=== PATIENT | male | born 1995 | race American Indian/Alaskan Native ===

== ENCOUNTER 2016-10-21 15:26 | Emergency (ER) | payer SELFPAY ==
[2016-10-21 16:17] VITALS: BP 129/56
[2016-10-21] MEDS ORDERED: ULTRAM PO ONE (17:22)
--- NOTE | 2016-10-21 18:19 | XRay Report ---
FINAL REPORT PROCEDURE: XR ANKLE 3 LT TECHNIQUE: Left ankle, two views HISTORY: pain post injury COMPARISON: No prior studies are available for comparison. FINDINGS: No acute fracture or dislocation is seen. Ankle mortise and talar dome are intact. IMPRESSION: No acute fracture or dislocation is seen
--- NOTE | 2016-10-21 19:31 | Emergency Department Report ---
Entered by LAMINE MORALES, acting as scribe for WOLF CARLSON PA. ED Lower Extremity HPI - General Chief Complaint: Extremity Injury, Lower Stated Complaint: LT ANKLE PAIN Time Seen by Provider: 10/21/16 16:24 Source: patient Mode of arrival: Ambulatory Limitations: No Limitations - History of Present Illness Initial Comments: 21 year old male with no significant PMHx presents to the ED c/o left ankle pain that began last night. Patient states he jumped a fence at work, fell on a log, and subsequently twisted his left ankle inward. Rates pain a 6/10 in severity. He describes pain as throbbing in quality with walking and movement. Denies pain at rest. Associated symptoms includes left ankle swelling, but he denies numbness, tingling, fever, and chills. Notes soaking left ankle in warm water with no relief. Allergic to hydrocodone and Ibuprofen. -: Last night Injury: Ankle: Left Type of Injury: inversion Place: work Severity: moderate Severity scale (0 -10): 6 Improves With: immobilization Worsens With: weight bearing, movement Context: fall (jumped a fence and twisted ankle after landing on a log) Associated Symptoms: able to partially bear weight, ambulatory. denies: snap/ pop sensation, swelling, numbness, tingling, other (headache) - Related Data Previous Rx's Medication Instructions Recorded Last Taken Type Cephalexin [Keflex] 500 mg PO Q6HR #40 capsule 10/31/13 Unknown Rx Ibuprofen [Motrin] 600 mg PO Q8H PRN #50 tablet 10/31/13 Unknown Rx traMADol [Ultram 50 MG tab] 50 mg PO Q6HR PRN #16 tablet 10/21/16 Unknown Rx Allergies Allergy/AdvReac Type Severity Reaction Status Date / Time hydrocodone Allergy Hives Verified 10/21/16 16:11 ibuprofen Allergy Unknown Verified 10/21/16 16:11 ED Review of Systems Comment: All other systems reviewed and negative Constitutional: denies: chills, fever, other (tingling) Gastrointestinal: denies: nausea, vomiting Musculoskeletal: joint swelling (left ankle), other (left ankle pain) Skin: denies: rash Neurological: denies: headache, numbness ED Past Medical Hx - Past Medical History Previous Medical History?: No - Surgical History Past Surgical History?: No - Social History Smoking Status: Never Smoker Substance Use Type: None - Medications Home Medications: Home Medications Medication Instructions Recorded Confirmed Last Taken Type Cephalexin [Keflex] 500 mg PO Q6HR #40 capsule 10/31/13 Unknown Rx Ibuprofen [Motrin] 600 mg PO Q8H PRN #50 tablet 10/31/13 Unknown Rx traMADol [Ultram 50 MG tab] 50 mg PO Q6HR PRN #16 tablet 10/21/16 Unknown Rx ED Physical Exam - General Limitations: No Limitations General appearance: alert, in no apparent distress - Head Head exam: Present: atraumatic, normocephalic - Eye Eye exam: Present: normal appearance, EOMI Pupils: Present: normal accommodation - ENT ENT exam: Present: normal exam, mucous membranes moist - Neck Neck exam: Present: normal inspection, full ROM - Respiratory Respiratory exam: Present: normal lung sounds bilaterally. Absent: respiratory distress, wheezes, rales, rhonchi - Cardiovascular Cardiovascular Exam: Present: regular rate, normal rhythm. Absent: systolic murmur, diastolic murmur, rubs, gallop - GI/Abdominal GI/Abdominal exam: Present: soft. Absent: distended - Extremities Exam Extremities exam: Present: normal inspection, full ROM (limited dorsiflexion and plantar flexion motion due to left ankle), tenderness (left anterior ankle) - Expanded Lower Extremity Exam Left Hip exam: Present: normal inspection, full ROM Upper Leg exam: Present: normal inspection, full ROM Knee exam: Present: normal inspection, full ROM Lower Leg exam: Present: normal inspection, full ROM. Absent: tenderness Ankle exam: Present: normal inspection, full ROM (limited dorsiflexion and plantar flexion motion due to left ankle pain), tenderness (anterior aspect tenderness to palpation). Absent: swelling, abrasion, laceration, ecchymosis, deformity, dislocation Foot/Toe exam: Present: normal inspection, full ROM. Absent: tenderness Neuro vascular tendon exam: Present: no vascular compromise. Absent: pulse deficit, abnormal cap refill, motor deficit, sensory deficit, tendon deficit, pallor Gait: Positive: observed and normal - Back Exam Back exam: Present: normal inspection, full ROM - Neurological Exam Neurological exam: Present: alert, oriented X3 - Psychiatric Psychiatric exam: Present: normal affect, normal mood - Skin Skin exam: Present: warm, dry, intact. Absent: rash, erythema (left ankle), ecchymosis (left ankle), other (left ankle edema) ED Course Vital Signs 10/21/16 10/21/16 10/21/16 16:12 17:34 17:35 Temperature 98.3 F Pulse Rate 72 84 Respiratory 18 18 18 Rate Blood Pressure 129/56 O2 Sat by Pulse 100 99 Oximetry ED Lower Extremity MDM - Lab Data Vital Signs 10/21/16 10/21/16 10/21/16 16:12 17:34 17:35 Temperature 98.3 F Pulse Rate 72 84 Respiratory 18 18 18 Rate Blood Pressure 129/56 O2 Sat by Pulse 100 99 Oximetry - Radiology Data Radiology results: report reviewed PROCEDURE: XR ANKLE 3 LT TECHNIQUE: Left ankle, two views HISTORY: pain post injury COMPARISON: No prior studies are available for comparison. FINDINGS: No acute fracture or dislocation is seen. Ankle mortise and talar dome are intact. IMPRESSION: No acute fracture or dislocation is seen - Medical Decision Making 21-year-old male presents today with left ankle pain post twisting injury. His x-rays also reveal no fracture or dislocation. Patient is in no acute distress at this time. He will be discharged home and is encouraged to follow up with a primary care provider. He will be sent home on tramadol and is encouraged to return to the emergency room for any worsening symptoms. ED Disposition Clinical Impression: Ankle pain Qualifiers: Laterality: left Chronicity: acute Qualified Code(s): M25.572 - Pain in left ankle and joints of left foot Disposition: DISCHARGED TO HOME OR SELFCARE Is pt being admited?: No Does the pt Need Aspirin: No Condition: Stable Instructions: Ankle Sprain (ED), Ankle Exercises (GEN) Additional Instructions: Follow-up with primary care provider. Return to the emergency department if symptoms worsen. Prescriptions: traMADol [Ultram 50 MG tab] 50 mg PO Q6HR PRN #16 tablet PRN Reason: Pain Referrals: PRIMARY CARE, [Primary Care Provider] - 3-5 Days DESI ROSALES MD [Staff Physician] - 3-5 Days Forms: Work/School Release Form(ED) Time of Disposition: 19:26 This documentation as recorded by the ANDREW cortez JASMINE,accurately reflects the service I personally performed and the decisions made by ROBYN keith NATASHA, PA.
== END 2016-10-21 19:44 | disposition home or self-care (01) ==
LOC: ED 15:26
DX: M25.572 Pain in left ankle and joints of left foot (principal)
CPT/HCPCS: 99283

== ENCOUNTER 2017-01-13 08:35 | Emergency (ER) | payer SELFPAY ==
--- NOTE | 2017-01-13 11:15 | Emergency Department Report ---
ED Male HPI - General Chief complaint: Urogenital-Male Stated complaint: POSS STD Time Seen by Provider: 01/13/17 10:46 Source: patient Mode of arrival: Ambulatory Limitations: No Limitations - Related Data Previous Rx's Medication Instructions Recorded Last Taken Type Cephalexin [Keflex] 500 mg PO Q6HR #40 capsule 10/31/13 Unknown Rx Ibuprofen [Motrin] 600 mg PO Q8H PRN #50 tablet 10/31/13 Unknown Rx traMADol [Ultram 50 MG tab] 50 mg PO Q6HR PRN #16 tablet 10/21/16 Unknown Rx Allergies Allergy/AdvReac Type Severity Reaction Status Date / Time hydrocodone Allergy Hives Verified 10/21/16 16:11 ibuprofen Allergy Unknown Verified 10/21/16 16:11 ED Review of Systems ROS: Stated complaint: POSS STD Other details as noted in HPI ED Past Medical Hx - Past Medical History Previous Medical History?: No - Surgical History Past Surgical History?: No - Social History Smoking Status: Never Smoker Substance Use Type: None - Medications Home Medications: Home Medications Medication Instructions Recorded Confirmed Last Taken Type Cephalexin [Keflex] 500 mg PO Q6HR #40 capsule 10/31/13 Unknown Rx Ibuprofen [Motrin] 600 mg PO Q8H PRN #50 tablet 10/31/13 Unknown Rx traMADol [Ultram 50 MG tab] 50 mg PO Q6HR PRN #16 tablet 10/21/16 Unknown Rx ED Physical Exam - General Limitations: No Limitations ED Course Vital Signs 01/13/17 08:52 Temperature 9837 F H Pulse Rate 88 Respiratory 20 Rate Blood Pressure 125/88 O2 Sat by Pulse 100 Oximetry Critical care attestation.: If time is entered above; I have spent that time in minutes in the direct care of this critically ill patient, excluding procedure time. ED Disposition Condition: Stable Referrals: PRIMARY CARE, [Primary Care Provider] - 3-5 Days
[2017-01-13 11:55] LABS: Bilirubin,Urine NEG (Negative); Blood,Urine NEG (Negative); Ketones,Urine NEG (Negative); Leukocyte Esterase,Urine NEG (Negative); Nitrite,Urine NEG (Negative); Protein,Urine <15 mg/dL mg/dL (Negative)
[2017-01-13] MEDS ORDERED: ROCEPHIN IM ONE (14:27)
[2017-01-13] MEDS ORDERED: XYLOCAINE 1% MPF 5 mL INFILTRATI ONE (14:27)
[2017-01-13] MEDS ORDERED: ZITHROMAX PO ONE (14:28)
[2017-01-13 15:00] VITALS: BP 126/80
--- NOTE | 2017-01-13 15:12 | Emergency Department Report ---
Entered by ERIC GIBSON, acting as scribe for YAA SULTANA NP. ED Male HPI - General Chief complaint: Urogenital-Male Stated complaint: POSS STD Time Seen by Provider: 01/13/17 10:46 Source: patient Mode of arrival: Ambulatory Limitations: No Limitations - History of Present Illness Initial comments: 21 year old male with no significant PMHx presents to ED with c/o erythema and itching to penile for 2 days. Patient states he had protected sex with his partner and denies hx of STD or HIV exposure. Patient states he is sexually active with one partner, and states his partner denies Hx STD exposure. Patient reports sores and describes pain as itchy, but denies dysuria, penile discharge , bleeding from penile, CP, SOB, numbness, or tingling. Patient notes he do encounter oral sex with his partner. Denies EtOH or drug usage. -: days(s) (2) Location: penis Radiation: none Severity: moderate Severity scale (0 -10): 4 Quality: burning Consistency: constant Improves with: none Worsens with: palpation denies other symptoms. denies: discharge, swelling, rash, urinary retention, blood in urine, dysuria, fever, nausea/vomiting, incontinence - Related Data Sexually active: Yes (1 partner ) Previous Rx's Medication Instructions Recorded Last Taken Type Cephalexin [Keflex] 500 mg PO Q6HR #40 capsule 10/31/13 Unknown Rx Ibuprofen [Motrin] 600 mg PO Q8H PRN #50 tablet 10/31/13 Unknown Rx traMADol [Ultram 50 MG tab] 50 mg PO Q6HR PRN #16 tablet 10/21/16 Unknown Rx Allergies Allergy/AdvReac Type Severity Reaction Status Date / Time hydrocodone Allergy Hives Verified 10/21/16 16:11 ibuprofen Allergy Unknown Verified 10/21/16 16:11 ED Review of Systems Comment: All other systems reviewed and negative Constitutional: see HPI. denies: chills, fever Eyes: as per HPI. denies: eye pain ENT: as per HPI. denies: ear pain, throat pain Respiratory: no symptoms reported, see HPI. denies: cough, shortness of breath , wheezing Cardiovascular: as per HPI. denies: chest pain, palpitations, dyspnea on exertion, orthopnea Endocrine: no symptoms reported, see HPI. denies: excessive sweating, flushing , intolerance to cold, intolerance to heat Gastrointestinal: as per HPI. denies: abdominal pain, nausea, diarrhea Genitourinary: as per HPI. denies: urgency, dysuria, frequency, discharge Musculoskeletal: as per HPI. denies: back pain, joint swelling, arthralgia Skin: as per HPI, other (sores to penile). denies: rash Neurological: as per HPI. denies: headache, weakness, numbness, paresthesias Psychiatric: as per HPI. denies: anxiety, depression Hematological/Lymphatic: as per HPI. denies: easy bleeding ED Past Medical Hx - Past Medical History Previous Medical History?: No - Surgical History Past Surgical History?: No - Family History Family history: no significant - Social History Smoking Status: Never Smoker Substance Use Type: None - Medications Home Medications: Home Medications Medication Instructions Recorded Confirmed Last Taken Type Cephalexin [Keflex] 500 mg PO Q6HR #40 capsule 10/31/13 Unknown Rx Ibuprofen [Motrin] 600 mg PO Q8H PRN #50 tablet 10/31/13 Unknown Rx traMADol [Ultram 50 MG tab] 50 mg PO Q6HR PRN #16 tablet 10/21/16 Unknown Rx ED Physical Exam - General Limitations: No Limitations General appearance: alert, in no apparent distress - Head Head exam: Present: atraumatic, normocephalic - Eye Eye exam: Present: normal appearance, PERRL - ENT ENT exam: Present: normal exam, mucous membranes moist - Neck Neck exam: Present: normal inspection, full ROM. Absent: tenderness, meningismus, lymphadenopathy - Respiratory Respiratory exam: Present: normal lung sounds bilaterally. Absent: respiratory distress, wheezes, rales, rhonchi, stridor - Cardiovascular Cardiovascular Exam: Present: regular rate, normal rhythm. Absent: systolic murmur, diastolic murmur, rubs, gallop - GI/Abdominal GI/Abdominal exam: Present: soft, normal bowel sounds. Absent: distended, tenderness, guarding, rebound, rigid, diminished bowel sounds - exam: Present: other (erythema to top of penis. he has lesions concerning for herpes. painful. yellow brent around top of penis on top of foreskin. no lesions under foreskin. no drainage. no discharge. ). Absent: normal inspection , testicular tenderness, urethral discharge, scrotal swelling - Extremities Exam Extremities exam: Present: normal inspection, full ROM, normal capillary refill. Absent: tenderness, pedal edema, joint swelling - Back Exam Back exam: Present: normal inspection, full ROM. Absent: tenderness - Neurological Exam Neurological exam: Present: alert, oriented X3 - Psychiatric Psychiatric exam: Present: normal affect, normal mood - Skin Skin exam: Present: warm, dry, intact, normal color, erythema (to penile ) ED Course Vital Signs 01/13/17 01/13/17 08:52 14:59 Temperature 9837 F H 98.1 F Pulse Rate 88 48 L Respiratory 20 16 Rate Blood Pressure 125/88 Blood Pressure 126/80 [Left] O2 Sat by Pulse 100 100 Oximetry - Reevaluation(s) Reevaluation #1: 01/13/17 to er w lesions around tip of penis sex w 1 female during last 2 m, condoms used no dc gf does not co same s/s no hx sti no testicular pain lesions started as a burn and itch, concerning for herpetic lesion johan given his ro condoms ua noted temp 98 Reevaluation #2: 01/13/17 13:40 discussed w lab hsv 1/2 G/M are send out- blood and swab sent this would be new dx for pt call w results. [phone] -- cell phone given pts concern level he was empiracally tx with rocephin IM and azithrom 1 GM PO educated on safe sex ED Medical Decision Making - Medical Decision Making ua noted gc herpes suspected- lab sent, send out - Differential Diagnosis ro herpetic lesion ED Disposition Clinical Impression: STI (sexually transmitted infection), Lesion of penis Disposition: DC-01 TO HOME OR SELFCARE Is pt being admited?: No Does the pt Need Aspirin: No Condition: Stable Instructions: Sexually Transmitted Diseases (ED), Safe Sex (ED) Additional Instructions: safe sex we will call you when the swab results come back Referrals: PRIMARY CARE,MD [Primary Care Provider] - 3-5 Days Time of Disposition: 14:29 This documentation as recorded by the PAIGE cortez PEARL,accurately reflects the service I personally performed and the decisions made by me,YAA SULTANA NP.
== END 2017-01-13 14:59 | disposition home or self-care (01) ==
LOC: ED 08:35
DX: N50.9 Disorder of male genital organs, unspecified (principal); Z88.6 Allergy status to analgesic agent
CPT/HCPCS: 81001; 87529; 87591; 96372; 99283; J0696

== ENCOUNTER 2017-07-01 00:03 | Emergency (ER) | payer SELFPAY ==
[2017-07-01 05:06] LABS: Amorphous Crystals,Urine 3+; Bilirubin,Urine NEG (Negative); Blood,Urine NEG (Negative); Calcium Oxalate Crystals,Urine 3+; Color,Urine Yellow (Yellow); Nitrite,Urine NEG (Negative)
[2017-07-01 05:08] LABS: WBC,Urine > 182.0 /HPF (0.0-6.0)
[2017-07-01] MEDS ORDERED: ROCEPHIN IM ONE (05:10)
[2017-07-01] MEDS ORDERED: XYLOCAINE 1% MPF 5 mL INFILTRATI ONE (05:10)
--- NOTE | 2017-07-01 05:15 | Emergency Department Report ---
ED Male HPI - General Chief complaint: Urogenital-Male Stated complaint: BODYACHE Time Seen by Provider: 07/01/17 03:55 Source: patient Mode of arrival: Ambulatory Limitations: No Limitations - History of Present Illness Initial comments: This is a 21-year-old male nontoxic, well nourished in appearance, no acute signs of distress presents to the ED with c/o of dysuria x6 days. Patient denies any penile discharge. Patient stated he believes he received from a dirty toilet. Patient denies any sexual activity. Denies any exposure or concerns of STD. Patient denies any back pain, chest pain, shortness of breath , fever, chills, nausea, vomiting, headache or stiff neck. Patient denies any polyuria or hematuria. Patient denies any back pain, testiuclar pain, or testiulcar swelling. Denies penila lesions or ulcers. Patient states allergies to hydrocodone and ibuprofen. Denies past medical history. MD Complaint: dysuria -: days(s) (6) Radiation: none Severity: mild Severity scale (0 -10): 8 Quality: burning Consistency: constant Improves with: none Worsens with: urination denies other symptoms. denies: discharge, swelling, mass, rash, urinary retention, blood in urine, dysuria, fever, nausea/vomiting, incontinence - Related Data Previous Rx's Medication Instructions Recorded Last Taken Type Cephalexin [Keflex] 500 mg PO Q6HR #40 capsule 10/31/13 Unknown Rx Ibuprofen [Motrin] 600 mg PO Q8H PRN #50 tablet 10/31/13 Unknown Rx traMADol [Ultram 50 MG tab] 50 mg PO Q6HR PRN #16 tablet 10/21/16 Unknown Rx Sulfamethoxazole/Trimethoprim 1 each PO BID #14 tablet 07/01/17 Unknown Rx [Bactrim DS TAB] Allergies Allergy/AdvReac Type Severity Reaction Status Date / Time hydrocodone Allergy Hives Verified 10/21/16 16:11 ibuprofen Allergy Unknown Verified 10/21/16 16:11 ED Review of Systems ROS: Stated complaint: BODYACHE Other details as noted in HPI Constitutional: denies: chills, fever Eyes: denies: eye pain, eye discharge, vision change ENT: denies: ear pain, throat pain Respiratory: denies: cough, shortness of breath, wheezing Cardiovascular: denies: chest pain, palpitations Endocrine: no symptoms reported Gastrointestinal: denies: abdominal pain, nausea, diarrhea Genitourinary: dysuria. denies: urgency Musculoskeletal: denies: back pain, joint swelling, arthralgia Skin: denies: rash, lesions Neurological: denies: headache, weakness, paresthesias Psychiatric: denies: anxiety, depression Hematological/Lymphatic: denies: easy bleeding, easy bruising ED Past Medical Hx - Past Medical History Previous Medical History?: Yes - Surgical History Past Surgical History?: No - Social History Smoking Status: Former Smoker Substance Use Type: None - Medications Home Medications: Home Medications Medication Instructions Recorded Confirmed Last Taken Type Cephalexin [Keflex] 500 mg PO Q6HR #40 capsule 10/31/13 Unknown Rx Ibuprofen [Motrin] 600 mg PO Q8H PRN #50 tablet 10/31/13 Unknown Rx traMADol [Ultram 50 MG tab] 50 mg PO Q6HR PRN #16 tablet 10/21/16 Unknown Rx Sulfamethoxazole/Trimethoprim 1 each PO BID #14 tablet 07/01/17 Unknown Rx [Bactrim DS TAB] ED Physical Exam - General Limitations: No Limitations General appearance: alert, in no apparent distress - Head Head exam: Present: atraumatic, normocephalic - Eye Eye exam: Present: normal appearance, PERRL, EOMI Pupils: Present: normal accommodation - ENT ENT exam: Present: normal exam, normal orophraynx, mucous membranes moist, TM's normal bilaterally, normal external ear exam - Neck Neck exam: Present: normal inspection, full ROM. Absent: tenderness, meningismus, lymphadenopathy, thyromegaly - Respiratory Respiratory exam: Present: normal lung sounds bilaterally. Absent: respiratory distress, wheezes, rales, rhonchi, stridor, chest wall tenderness, accessory muscle use, decreased breath sounds, prolonged expiratory - Cardiovascular Cardiovascular Exam: Present: regular rate, normal rhythm, normal heart sounds. Absent: bradycardia, tachycardia, irregular rhythm, systolic murmur, diastolic murmur, rubs, gallop - GI/Abdominal GI/Abdominal exam: Present: soft, normal bowel sounds - Rectal Rectal exam: Present: deferred - Extremities Exam Extremities exam: Present: normal inspection, full ROM. Absent: tenderness, normal capillary refill, pedal edema, joint swelling, calf tenderness - Back Exam Back exam: Present: normal inspection, full ROM. Absent: tenderness, CVA tenderness (R), CVA tenderness (L), muscle spasm, paraspinal tenderness, vertebral tenderness, rash noted - Neurological Exam Neurological exam: Present: alert, oriented X3, CN II-XII intact, normal gait, reflexes normal - Psychiatric Psychiatric exam: Present: normal affect, normal mood - Skin Skin exam: Present: warm, dry, intact, normal color. Absent: rash ED Course Vital Signs 07/01/17 01:21 Temperature 98.1 F Pulse Rate 81 Respiratory 18 Rate Blood Pressure 110/67 O2 Sat by Pulse 98 Oximetry - Reevaluation(s) Reevaluation #1: 07/01/17 05:15 Patient is speaking in full sentences with no signs of distress noted. ED Medical Decision Making - Medical Decision Making 21-year-old male that presents with a urinary tract infection. Patient is stable and was examined by me. UA indicates elevated WBCs and leukocytes. Patient received Rocephin 1 g in the ED and patient is discharged with Bactrim. No CVA tenderness. Patient was instructed Follow-up with a primary care doctor in 3-5 days or if symptoms worsen and continue return to emergency room as soon as possible. At time time of discharge, the patient does not seem toxic or ill in appearance. No acute signs of distress noted. Patient agrees to discharge treatment plan of care. No further questions noted by the patient. Critical care attestation.: If time is entered above; I have spent that time in minutes in the direct care of this critically ill patient, excluding procedure time. ED Disposition Clinical Impression: Urinary tract infection Qualifiers: Urinary tract infection type: site unspecified Hematuria presence: without hematuria Qualified Code(s): N39.0 - Urinary tract infection, site not specified Disposition: DC- TO HOME OR SELFCARE Is pt being admited?: No Does the pt Need Aspirin: No Condition: Stable Instructions: Urinary Tract Infection in Men (ED), Sulfamethoxazole/ Trimethoprim (By mouth) Additional Instructions: Follow-up with a primary care doctor in 3-5 days or if symptoms worsen and continue return to emergency room as soon as possible. Prescriptions: Sulfamethoxazole/Trimethoprim [Bactrim DS TAB] 1 each PO BID #14 tablet Referrals: PRIMARY CAREMD [Primary Care Provider] - 3-5 Days HAYLEE DE LEÓN MD [Staff Physician] - 3-5 Days [facility] [Outside] - 3-5 Days [facility] [Outside] - 3-5 Days Forms: Work/School Release Form(ED)
[2017-07-01 05:48] VITALS: BP 119/67
== END 2017-07-01 05:48 | disposition home or self-care (01) ==
LOC: ED 00:03
DX: N39.0 Urinary tract infection, site not specified (principal)
CPT/HCPCS: 81001; 87591; 96372; 99283; J0696

== ENCOUNTER 2017-09-06 13:17 | Emergency (ER) | payer OTHER ==
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
[2017-09-06 18:14] VITALS: BP 104/60
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
== END 2017-09-06 18:14 | disposition home or self-care (01) ==
LOC: ED 13:17
DX: S13.9XXA Sprain of joints and ligaments of unspecified parts of neck, initial encounter (principal); S60.512A Abrasion of left hand, initial encounter; S60.511A Abrasion of right hand, initial encounter; M54.9 Dorsalgia, unspecified; Z88.6 Allergy status to analgesic agent; V89.2XXA Person injured in unspecified motor-vehicle accident, traffic, initial encounter; W22.10XA Striking against or struck by unspecified automobile airbag, initial encounter; Y93.89 Activity, other specified; Y99.8 Other external cause status; Y92.410 Unspecified street and highway as the place of occurrence of the external cause
CPT/HCPCS: 71046; 72100; 72125; 99284

== ENCOUNTER 2018-03-08 08:26 | Emergency (ER) | payer SELFPAY ==
[2018-03-08 08:40] VITALS: BP 129/74
[2018-03-08] MEDS ORDERED: DECADRON IM ONE (10:40)
--- NOTE | 2018-03-08 10:40 | Emergency Department Report ---
ED Rash HPI - HPI Chief Complaint: Medical Clearance Stated Complaint: LFT LYMNOD SWOLLEN/HEAD SORES Duration: 2 weeks Location: Head Suspected Cause: Other (Bar soap) Rash Symptoms: Yes Itching, Yes Blistering, No Facial Swelling, No Tongue/Oral Swelling, No Breathing Difficulties, No Choking Sensation, No Wheezing/Dyspnea, No Peeling, No Fever, No Lightheaded, No Malaise, No Myalgias Other History: This is a 22-year-old -[place] male who presents with sores on hands and swollen lymph nodes to 2 weeks. Patient states when he returned from college he had sores on hands and swollen lymph nodes that increase with pain over the past 2 days. Patient states he started using [place] to wash here and noticed some irritation to scalp. Patient states someone told him to use apple cider vinegar and prado sold her which cause rash to increase. Patient states pain is worse with exposure to sunlight. Patient denies drainage, fever, swelling, crusting, and chest pain. ED Review of Systems ROS: Stated complaint: LFT LYMNOD SWOLLEN/HEAD SORES Other details as noted in HPI Constitutional: denies: chills, fever ENT: denies: ear pain, throat pain Respiratory: denies: cough, shortness of breath, wheezing Cardiovascular: denies: chest pain, palpitations Gastrointestinal: denies: abdominal pain, nausea, diarrhea Skin: rash (rash to scalp with discharge). denies: lesions Neurological: denies: headache, weakness, paresthesias Psychiatric: denies: anxiety, depression ED Past Medical Hx - Social History Smoking Status: Never Smoker Substance Use Type: None - Medications Home Medications: Home Medications Medication Instructions Recorded Confirmed Last Taken Type Cephalexin [Keflex] 500 mg PO Q6HR #40 capsule 10/31/13 Unknown Rx Ibuprofen [Motrin] 600 mg PO Q8H PRN #50 tablet 10/31/13 Unknown Rx traMADol [Ultram 50 MG tab] 50 mg PO Q6HR PRN #16 tablet 10/21/16 Unknown Rx Sulfamethoxazole/Trimethoprim 1 each PO BID #14 tablet 07/01/17 Unknown Rx [Bactrim DS TAB] Bacitracin 1 applicatio OP TID #1 tube 09/06/17 Unknown Rx Prednisone [predniSONE 10 mg 10 mg PO .TAPER #1 tab.ds.pk 03/08/18 Unknown Rx (6-Day Pack, 21 Tabs)] Sulfamethoxazole/Trimethoprim 1 each PO BID #14 tablet 03/08/18 Unknown Rx [Bactrim DS TAB] Rash Exam - Exam General: Vital signs noted. No distress. Alert and acting appropriately. HEENT: No Periorbital Edema, No Conjuctival Injection, No Chemosis, No Perioral Edema, No Tongue Edema, No Uvular Edema, No Compromised Airway, No Drooling Lungs: Yes Good Air Exchange (Normal Breath Sounds), No Wheezes, No Ronchi, No Stridor, No Cough, No Labored Respirations, No Retractions, No Use of Accessory Muscles, No Other Abnormal Lung Sounds Heart: Yes Regular, No Murmur Skin: Yes Maculopapular Rash (multiple 2-3 mm blisters to occipital scalp, erythematous, serous drainage), Yes Weeping, Yes Tenderness, Yes Erythema, No Urticarial Rash, No Morbilliform rash, No Bulla(e), No Excoriations, No Edema, No Encrustations ED Course Vital Signs 03/08/18 08:38 Temperature 97.7 F Pulse Rate 78 Respiratory 16 Rate Blood Pressure 129/74 O2 Sat by Pulse 100 Oximetry ED Medical Decision Making - Medical Decision Making Patient was examined by me and emergency room. Vitals are normal and patient is in no acute distress. Patient given Tylenol and dexamethasone while in ER. Physical findings susceptible allergic contact dermatitis. Patient informed of results. Start Bactrim and prednisone taper. Plan discussed with patient to discharge home and treat outpatient. He agrees with ER plan. Patient discharged home in stable condition. Referral to dermatology and allergy specialists. Follow up with PCP in 2-3 days. Critical care attestation.: If time is entered above; I have spent that time in minutes in the direct care of this critically ill patient, excluding procedure time. ED Disposition Clinical Impression: Allergic contact dermatitis Qualifiers: Contact dermatitis trigger: other chemical product Qualified Code(s): L23.5 - Allergic contact dermatitis due to other chemical products Disposition: DC-01 TO HOME OR SELFCARE Is pt being admited?: No Does the pt Need Aspirin: No Condition: Stable Instructions: Contact Dermatitis (ED) Additional Instructions: Avoid drinking alcohol while taking antibiotics and for 24 hours after completion. Follow-up with dermatology for referral. Follow up with Primary Care Provider in 2-3 days. Prescriptions: Prednisone [predniSONE 10 mg (6-Day Pack, 21 Tabs)] 10 mg PO .TAPER #1 tab.ds.pk Sulfamethoxazole/Trimethoprim [Bactrim DS TAB] 1 each PO BID #14 tablet Referrals: [facility] [Provider Group] - 3-5 Days [facility] [Provider Group] - 3-5 Days Time of Disposition: 11:49 Print Language: DANISH
[2018-03-08] MEDS ORDERED: TYLENOL PO ONE (10:44)
[2018-03-08] MEDS ORDERED: VALTREX PO ONE (11:12)
== END 2018-03-08 11:58 | disposition home or self-care (01) ==
LOC: ED 08:26
DX: L23.5 Allergic contact dermatitis due to other chemical products (principal); Z79.899 Other long term (current) drug therapy; Z88.4 Allergy status to anesthetic agent; Z88.6 Allergy status to analgesic agent
CPT/HCPCS: 96372; 99282; J1100